=== PATIENT | female | born 1960 | race Hispanic/Latino ===

== ENCOUNTER 2019-02-20 15:03 | Emergency (ER) | payer MEDICARE ==
[~2019-02-20] VITALS: Ht 154.9 cm; Wt 59.0 kg
[~2019-02-20 15:03] MED LIST: ASCO10007 PO; ASPI-1197 PO; ATEN25TA PO; CLON1TAB12 PO; CYCL10TA7 PO; D3 PO; DENO60DI SQ; DHEA PO; DOCUSATE SODIUM PO; GARL10005 PO; GLUCOSAMINE PO; LACT1CAP65 PO; LOSA1TAB37 PO; MAGN500C15 PO; RIZATRIPTAN PO; SIMV20TA6 PO; SULI200T4 PO; TRAM50TA4 PO; VITA400C25 PO
[2019-02-20 15:29] LABS: BASOPHILS % (AUTO) 0.8 % (0.0-5.0); EOSINOPHILS % (AUTO) 3.8 % (0.0-8.0); HEMATOCRIT 41.3 % (36-48); LYMPHOCYTES % (AUTO) 37.3 % (21.0-51.0); MEAN CORPUSCULAR HEMOGLOBIN 31.7 pg (27.0-33.0); MEAN CORPUSCULAR HGB CONC 34.1 g/dL (32.0-36.0); MEAN CORPUSCULAR VOLUME 92.9 fL (79-99); MONOCYTES % (AUTO) 7.2 % (3.0-13.0); NEUTROPHILS % (AUTO) 50.9 % (40.0-77.0); PLATELET COUNT (AUTO) 281 K/uL (130-400); RED BLOOD CELL COUNT(AUTO) 4.44 MIL/uL (4.00-5.50); RED CELL DISTRIBUTION WIDTH 13.5 % (11.0-15.5); WHITE BLOOD COUNT (AUTO) 7.3 K/uL (4.8-10.8)
[2019-02-20 15:39] LABS: CREATININE 1.2 mg/dL (0.5-1.5); POTASSIUM 3.1 mmol/L (3.5-5.1)
[2019-02-20] MEDS ORDERED: POTASSIUM BICARB/CIT AC 25 MEQ TABLET.EFF ONE (15:42)
[2019-02-20 15:44] LABS: ALBUMIN 4.2 g/dL (3.5-5.0); BILIRUBIN,TOTAL 0.4 mg/dL (0.2-1.0); TOTAL PROTEIN, SERUM 8.2 g/dL (6.0-8.3)
[2019-02-20] MEDS ORDERED: SODIUM CHLORIDE 0.9% 500ML 500 ML IV ONE (15:46)
[2019-02-20 16:16] LABS: PARTIAL THROMBOPLASTIN TIME 27.9 SEC (26.3-35.5); PROTHROMBIN TIME 10.5 SEC (9.6-11.6)
[2019-02-20] MEDS ORDERED: VERAPAMIL HCL 240 MG SRTAB PO SCH (16:29)
[2019-02-20] MEDS ORDERED: ACETAMINOPHEN 325 MG TAB ONE (17:28)
== END 2019-02-20 18:23 | disposition home or self-care (01) ==
LOC: EDH 15:03
DX: R00.0 Tachycardia, unspecified (principal); R00.2 Palpitations; Z91.14 Patient's other noncompliance with medication regimen; Z88.4 Allergy status to anesthetic agent; Z88.8 Allergy status to other drugs, medicaments and biological substances
CPT/HCPCS: 36415; 71045; 80053; 82550; 83735; 84484; 85025; 85610; 85730; 93005; 99285; J7040

== ENCOUNTER → 2019-03-05 | Outpatient (CLI) | payer MEDICARE | END | disposition home or self-care (01) | LOC: SHCH 12:57 | PROVIDERS: ATTEND Internal Medicine Cardiovascular Disease | DX: I11.9 Hypertensive heart disease without heart failure (principal) | CPT/HCPCS: 93306 ==

== ENCOUNTER 2019-05-07 05:55 | Observation (INO) | payer MEDICARE ==
[2019-05-05 10:49] LABS: EOSINOPHILS % (AUTO) 6.6 % (0.0-8.0); HEMATOCRIT 40.5 % (36-48); LYMPHOCYTES % (AUTO) 40.8 % (21.0-51.0); MEAN CORPUSCULAR HEMOGLOBIN 31.6 pg (27.0-33.0); MEAN CORPUSCULAR HGB CONC 33.8 g/dL (32.0-36.0); MEAN CORPUSCULAR VOLUME 93.6 fL (79-99); MONOCYTES % (AUTO) 8.6 % (3.0-13.0); NUCLEATED RED BLOOD CELLS 0.1 % (0.0-0.19); PLATELET COUNT (AUTO) 306 K/uL (130-400); RED BLOOD CELL COUNT(AUTO) 4.33 MIL/uL (4.00-5.50); RED CELL DISTRIBUTION WIDTH 13.3 % (11.0-15.5)
[2019-05-05 11:02] VITALS: BP 147/61
[2019-05-05 11:03] LABS: CREATININE 0.8 mg/dL (0.5-1.5); POTASSIUM 4.2 mmol/L (3.5-5.1)
[2019-05-05 11:48] LABS: INR 0.99 (0.85-1.15); PARTIAL THROMBOPLASTIN TIME 25.2 SEC (26.3-35.5); PROTHROMBIN TIME 10.4 SEC (9.6-11.6)
[~2019-05-07] VITALS: Ht 154.9 cm; Wt 59.4 kg
[2019-05-07] VITALS (13 sets, daily range): BP systolic 106–136; BP diastolic 50–74
[~2019-05-07 05:55] MED LIST changes: +ALBUTEROL HFA IH; -ATEN25TA PO; +CALCIUM CITRATE PO; +CARB15DR OP; +CHOL50004 PO; +CLOB30CR5 TP; -CYCL10TA7 PO; +CYCL30DR OP; -D3 PO; -DENO60DI SQ; -DHEA PO; +FAMO40TA7 PO; +FENO145T37 PO; +FEXO180T94 PO; -GLUCOSAMINE PO; -LOSA1TAB37 PO; +LOSA25TA41 PO; -MAGN500C15 PO; +MORINGA PO; +OMEG-125 PO; -RIZATRIPTAN PO; -SULI200T4 PO; +TRAM-355 PO; -TRAM50TA4 PO; +TURM500C9 PO; +VERA240T14 PO
[2019-05-07] MEDS ORDERED: SODIUM CHLORIDE 0.9% 1000ML 1,000 ML IV ONE (06:02)
[2019-05-07] MEDS ORDERED: LACT1CAP72 PO (06:42)
[2019-05-07] MEDS ORDERED: DOCU-272 PO (06:42)
--- NOTE | 2019-05-07 07:25 | NUR ---
PROCEDURE PT TAKEN TO [employer]ER VIA BED, NO DISTRESS NOTED. FAMILY AT BEDSIDE
[2019-05-07] MEDS ORDERED: HEPARIN SODIUM 1000UNIT/ML 10ML VIAL ONE (07:51)
[2019-05-07] MEDS ORDERED: MEPERIDINE-PF 25 MG/ML SYG ONE (07:51)
[2019-05-07] MEDS ORDERED: LIDOCAINE HCL 2% 20ML ONE (07:51)
[2019-05-07] MEDS ORDERED: MIDAZOLAM HCL 1 MG/ML 2ML VIAL ONE (07:51)
[2019-05-07] MEDS ORDERED: ISOPROTERENOL HCL 0.2 MG/ML AMP/VIAL/BAG ONE (09:04)
[2019-05-07] MEDS ORDERED: FENTANYL CITRATE PF 50 MCG/1 ML 2ML VIAL ONE (09:36)
[2019-05-07] MEDS ORDERED: NON-FORMULARY MEDICATION 1 EACH (Famotidine 40 MG) PO SCH (12:15)
[2019-05-07] MEDS: PROPAFENONE HCL 150 MG TABLET PO SCH ×2 (12:15→21:17)
[2019-05-07] MEDS ORDERED: TRAMADOL /APAP 37.5MG/325MG TAB PO PRN (12:15)
[2019-05-07] MEDS ORDERED: CLONAZEPAM 1 MG TABLET PO PRN (12:15)
[2019-05-07] MEDS ORDERED: DOCUSATE SODIUM 100 MG CAP PO PRN (12:15)
[2019-05-07] MEDS ORDERED: [UNRECOGNIZED DRUG - REMARK] PO SCH (12:15)
[2019-05-07] MEDS ORDERED: CYCLOSPORINE OP SCH (12:15)
[2019-05-07] MEDS ORDERED: CARBOXYMETHYLCELLULOSE SODIUM OP PRN (12:15)
[2019-05-07] MEDS ORDERED: PROP225C11 PO (12:22)
[2019-05-07] MEDS ORDERED: VERA180T12 PO (12:22)
--- NOTE | 2019-05-07 12:40 | NUR ---
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 LEFT AND RT GROIN SOFT NONTENDER WITH NO OOZING OR HEMATOMA PRESENT. DP/PT PULSES PALPABLE. PT ON BEDREST FOR 3 HOURS UNTIL 1530. CALL LIGHT WITHIN REACH, FAMILY AT BEDSIDE.
[2019-05-07] MEDS: PHARMACY COMMUNICATION MISC SCH (14:00)
[2019-05-07] MEDS: ASCORBIC ACID 500 MG TAB PO SCH ×2 (14:00→21:16)
[2019-05-07] MEDS: VERAPAMIL HCL 80 MG TABLET PO SCH ×2 (14:00→21:16)
--- NOTE | 2019-05-07 15:30 | NUR ---
BEDREST COMPLETE LEFT AND RIGHT GROIN SOFT NONTENDER WITH NO OOZING OR HEMATOMA PRESENT. DP/PT PULSES PALPABLE. PT IS AMBULATING TO BATHROOM AND BACK TO BED, GAIT STEADY AND STRONG WITH STAND BY ASSIST. CALL LIGHT WITHIN REACH, FAMILY AT BEDSIDE.
[2019-05-07] MEDS: LACTOBACILLUS RHAMNOSUS GG 1 EACH CAP.SPRINK PO SCH (21:17)
[2019-05-08 03:54] VITALS: BP 111/63
[2019-05-08] MEDS: PROPAFENONE HCL 150 MG TABLET PO SCH ×3 (03:55→18:02)
[2019-05-08] MEDS: PHARMACY COMMUNICATION MISC SCH (07:29)
[2019-05-08 08:22] VITALS: BP 126/68
[2019-05-08] MEDS ORDERED: GARLIC 1000 MG PO SCH (09:00)
[2019-05-08] MEDS ORDERED: Cholecalciferol (Vitamin D3) 5,000 UNIT PO SCH (09:00)
[2019-05-08] MEDS ORDERED: FENOFIBRATE NANOCRYSTALLIZED 145 MG TAB PO SCH (09:00)
[2019-05-08] MEDS ORDERED: LOSARTAN 50 MG TABLET PO SCH (09:00)
[2019-05-08] MEDS: VERAPAMIL HCL 80 MG TABLET PO SCH ×3 (09:14→18:02)
[2019-05-08] MEDS: LACTOBACILLUS RHAMNOSUS GG 1 EACH CAP.SPRINK PO SCH (09:14)
[2019-05-08] MEDS: ASCORBIC ACID 500 MG TAB PO SCH ×2 (09:14→14:00)
[2019-05-08] MEDS ORDERED: REGADENOSON 0.4 MG/5 ML PF SYG IVP SCH (09:45)
[2019-05-08 12:00] VITALS: BP 126/71
[2019-05-08 16:20] VITALS: BP 137/74
== END 2019-05-08 18:40 | disposition home or self-care (01) ==
LOC: DAH 05:55 → DAHIP 05:56 → 2AH 12:43
PROVIDERS: ADMIT Internal Medicine; ATTEND Internal Medicine
DX: I47.1 Supraventricular tachycardia (principal); M79.7 Fibromyalgia; I10 Essential (primary) hypertension; E78.00 Pure hypercholesterolemia, unspecified; M85.89 Other specified disorders of bone density and structure, multiple sites; Z90.710 Acquired absence of both cervix and uterus; Z98.51 Tubal ligation status; Z79.82 Long term (current) use of aspirin; Z79.899 Other long term (current) drug therapy; Z88.8 Allergy status to other drugs, medicaments and biological substances
CPT/HCPCS: 36415; 78452; 80048; 85025; 85610; 85730; 93005; 93017; 93613; 93621; 93623; 93653; A4215; A4216; A4221; A4222; A4223 ×3; A4606; A4649 ×2; A4663; A9500 ×2; C1730 ×4; C1731; C1732; C1894 ×5; G0378 ×31; J1644 ×2; J2175; J2250; J2785; J3010; J3490 ×2; J7030; 96374; 99156; 99157

== ENCOUNTER 2019-08-05 05:48 | Day surgery (SDC) | payer MEDICARE ==
[~2019-08-05] VITALS: Ht 154.9 cm; Wt 60.8 kg
[~2019-08-05 05:48] MED LIST changes: -ASPI-1197 PO; -CLOB30CR5 TP; +DOCU-272 PO; -DOCUSATE SODIUM PO; +FENO145T26 PO; -FENO145T37 PO; -LACT1CAP65 PO; +LACT1CAP72 PO; +PROP225C11 PO; -SIMV20TA6 PO; +VERA180T12 PO; -VERA240T14 PO
[2019-08-05] MEDS ORDERED: SODIUM CHLORIDE 0.9% 1000ML 1,000 ML IV ONE (06:14)
[2019-08-05 06:25] VITALS: BP 125/58
[2019-08-05] MEDS ORDERED: WHEA1POW2 PO (06:47)
[2019-08-05] MEDS ORDERED: ALEN70TA10 PO (06:47)
[2019-08-05] MEDS ORDERED: LIDOCAINE HCL 2% 20ML ONE (07:40)
[2019-08-05] MEDS ORDERED: PROPOFOL 10 MG/ML 20ML VIAL IV ONE (07:40)
[2019-08-05 07:52] VITALS: BP 120/63
[2019-08-05 07:57] VITALS: BP 118/61
[2019-08-05 08:02] VITALS: BP 114/50
[2019-08-05 08:07] VITALS: BP 115/52
== END 2019-08-05 08:20 | disposition home or self-care (01) ==
LOC: DAH 05:48 → ENDO 05:48
PROVIDERS: ATTEND Internal Medicine
DX: K30 Functional dyspepsia (principal); K29.50 Unspecified chronic gastritis without bleeding; K21.0 Gastro-esophageal reflux disease with esophagitis; K44.9 Diaphragmatic hernia without obstruction or gangrene; E78.5 Hyperlipidemia, unspecified; M79.7 Fibromyalgia; M81.0 Age-related osteoporosis without current pathological fracture; M85.88 Other specified disorders of bone density and structure, other site; M19.90 Unspecified osteoarthritis, unspecified site; I10 Essential (primary) hypertension; G47.00 Insomnia, unspecified; Z90.710 Acquired absence of both cervix and uterus; Z79.899 Other long term (current) drug therapy; Z98.890 Other specified postprocedural states; Z98.51 Tubal ligation status; Z88.8 Allergy status to other drugs, medicaments and biological substances; Z82.49 Family history of ischemic heart disease and other diseases of the circulatory system; Z83.3 Family history of diabetes mellitus
CPT/HCPCS: 43239; 88305; A4215; A4221; A4222; A4223; A4606; A4620; A4663; J2704; J3490; J7030

== ENCOUNTER → 2021-01-06 | Outpatient (CLI) | payer MEDICARE ==
[~2021-01-06] MED LIST changes: -ALBUTEROL HFA IH; +ALEN70TA80 PO; +ASCO100031 PO; -ASCO10007 PO; -CALCIUM CITRATE PO; -CARB15DR OP; -DOCU-272 PO; +DOCU-280 PO; +IOHEXOL 350 MG/ML 100ML INFUS..BTL IV ONE; -LACT1CAP72 PO; +LACT1CAP81 PO; +WHEA1POW2 PO
== END | disposition home or self-care (01) ==
LOC: RAH 07:31
PROVIDERS: ATTEND Internal Medicine Gastroenterology
DX: K59.00 Constipation, unspecified (principal); Z90.711 Acquired absence of uterus with remaining cervical stump
CPT/HCPCS: 74178; Q9967

== ENCOUNTER → 2022-08-23 | Outpatient (CLI) | payer MEDICARE ==
[~2022-08-23] MED LIST changes: -IOHEXOL 350 MG/ML 100ML INFUS..BTL IV ONE; -VERA180T12 PO; +VERA180T61 PO
== END | disposition home or self-care (01) ==
LOC: RAH 06:58
PROVIDERS: ATTEND Internal Medicine Gastroenterology
DX: R10.13 Epigastric pain (principal)
CPT/HCPCS: 78264; A9541

== ENCOUNTER → 2022-11-19 | Outpatient (CLI) | payer OTHER | END | disposition home or self-care (01) | LOC: RAH 13:36 | PROVIDERS: ATTEND Internal Medicine Cardiovascular Disease | DX: Z13.6 Encounter for screening for cardiovascular disorders (principal); I51.5 Myocardial degeneration | CPT/HCPCS: 75571 ==

== ENCOUNTER → 2022-11-26 | Outpatient (CLI) | payer MEDICARE | END | disposition home or self-care (01) | LOC: SHCH 12:28 | PROVIDERS: ATTEND Internal Medicine Cardiovascular Disease | DX: I34.0 Nonrheumatic mitral (valve) insufficiency (principal); I47.1 Supraventricular tachycardia; I10 Essential (primary) hypertension; E78.5 Hyperlipidemia, unspecified | CPT/HCPCS: 93306 ==

== ENCOUNTER → 2023-03-08 | Outpatient (CLI) | payer MEDICARE ==
[~2023-03-08] MED LIST changes: +REGADENOSON 0.4 MG/5 ML PF SYG IVP ONE
== END | disposition home or self-care (01) ==
LOC: SHCH 07:31
PROVIDERS: ATTEND Internal Medicine Cardiovascular Disease
DX: R07.9 Chest pain, unspecified (principal); R06.09 Other forms of dyspnea
CPT/HCPCS: 78452; 96374; 93017; J2785; A9500 ×2

== ENCOUNTER → 2024-03-04 | Outpatient (CLI) | payer MEDICARE ==
[~2024-03-04] MED LIST changes: -REGADENOSON 0.4 MG/5 ML PF SYG IVP ONE; -TRAM-355 PO; +TRAM-543 PO
== END | disposition home or self-care (01) ==
LOC: SHCH 08:52
PROVIDERS: ATTEND Internal Medicine Cardiovascular Disease
DX: I87.2 Venous insufficiency (chronic) (peripheral) (principal); I87.1 Compression of vein; I65.23 Occlusion and stenosis of bilateral carotid arteries
CPT/HCPCS: 93880; 93970

== ENCOUNTER → 2024-08-03 | Outpatient (CLI) | payer MEDICARE ==
--- NOTE | 2024-08-03 12:20 | HMCIMG ---
MR SPINAL CANAL, LUMBAR WO CON HISTORY: Radiculopathy COMPARISON: None TECHNIQUE: MRI of the lumbar spine was performed utilizing multiple pulse sequences in axial , coronal and sagittal plane. Patient was not given contrast through intravenous route. FINDINGS: No abnormal signal intensity is seen of the visualized bony structure. No loss of vertebral height is seen. There is straightening of normal lumbar curvature which may be related to muscle spasm or positioning. Degenerative disc signals are present at all lumbar spine levels. Visualized distal conus is unremarkable. At the L2-3 level, there is central and right lateral center disc herniation/extrusion causing anterior thecal sac compression with mild bilateral lateral recess stenosis. The thecal sac measures approximately 8.2 mm in its anterior posterior dimension. At the L4-5 level, there is mild annular disc bulge with central disc protrusion/herniation with bilateral ligamentum flavum hypertrophy causing anterior thecal sac compression with bilateral lateral recess stenosis and mild bilateral neural foraminal stenosis. The thecal sac measures approximately 6.4 mm in its anterior posterior dimension. At the L5-S1 level, there is mild annular disc bulge with bilateral ligamentum flavum hypertrophy causing anterior thecal sac compression with mild bilateral lateral recess. The thecal sac measures approximately 8.6 mm in its anterior posterior dimension. IMPRESSION: 1. DJD with lumbar spine spondylosis as described above. Central and right lateral disc herniation/extrusion is seen at L2-3 level as described above.
== END | disposition home or self-care (01) ==
LOC: RAH 10:54
PROVIDERS: ATTEND Student in an Organized Health Care Education/Training Program
DX: M47.26 Other spondylosis with radiculopathy, lumbar region (principal); M51.16 Intervertebral disc disorders with radiculopathy, lumbar region; M48.061 Spinal stenosis, lumbar region without neurogenic claudication
CPT/HCPCS: 72148